=== PATIENT | female | born 1970 | race Caucasian/White ===

== ENCOUNTER 2019-01-26 18:37 | Day surgery (SDC) | payer BC ==
[2019-01-26] MEDS ORDERED: Lactated Ringers 1,000 ML IV ONE (18:45)
[2019-01-26] MEDS ORDERED: Levofloxacin/Dextrose 5%-Water 750 MG in Premix Bag 1 BAG IV ONE (18:46)
[2019-01-26] MEDS ORDERED: Bupivacaine 25%/EPINEPHrine/PF 30 ML ONE (19:16)
[2019-01-26] MEDS ORDERED: Lidocaine 2% 5 ML SDV ONE (19:18)
[2019-01-26] MEDS ORDERED: Dexamethasone 4 MG/ML 5 ML MDV ONE (19:18)
[2019-01-26] MEDS ORDERED: Ketorolac 30 MG/ML SDV ONE (19:18)
[2019-01-26] MEDS ORDERED: Propofol 200 MG/20 ML SDV ONE (19:18)
[2019-01-26] MEDS ORDERED: Ondansetron 4 MG/2 ML SDV ONE (19:18)
[2019-01-26] MEDS ORDERED: fentaNYL 250 MCG/5 ML SDV ONE (19:19)
[2019-01-26] MEDS ORDERED: Midazolam 1 MG/ML 2 ML SDV ONE ×2 (19:19→21:29)
[2019-01-26] MEDS ORDERED: fentaNYL 100 MCG/2 ML SDV IVPUSH PRN (20:49)
[2019-01-26] MEDS ORDERED: Naloxone 0.4 MG/ML Syringe IVPUSH PRN (20:49)
[2019-01-26] MEDS ORDERED: Atropine 0.1 MG/ML 10 ML Syringe IVPUSH PRN ×2 (20:49)
[2019-01-26] MEDS ORDERED: EPINEPHrine 1:10,000 1 MG/10 ML Syringe IVPUSH PRN (20:49)
[2019-01-26] MEDS ORDERED: 50% Dextrose in Water 50 ML Syringe IVPUSH PRN (20:49)
[2019-01-26] MEDS ORDERED: Albuterol 0.083% 2.5 MG/3 ML Neb Soln NEB PRN (20:49)
--- NOTE | 2019-01-26 20:49 | PCM.PREANE ---
Preanesthetic Assessment - Anesthesia/Transfusion/Family Hx Anesthesia History: Prior Anesthesia Without Reaction Transfusion History: Prior Transfusion Without Reaction - Review of Systems General: No Symptoms Pulmonary: No Symptoms Cardiovascular: No Symptoms Gastrointestinal: Abdominal Pain Neurological: No Symptoms Other: Reports: None - Physical Assessment NPO Status Date: 01/26/19 NPO Status Time: 09:00 Pulse: 85 O2 Sat by Pulse Oximetry: 98 Respiratory Rate: 17 Blood Pressure: 123/67 Height: 1.63 m Weight: 88.592 kg ASA Class: 2E Mental Status: Alert & Oriented x3 Dentition: Reports: Normal Dentition ROM/Head Extension: Full Lungs: Clear to Auscultation, Normal Respiratory Effort Cardiovascular: Regular Rhythm - Lab Values: Laboratory Last Values Urine HCG, Qual NEGATIVE (NEGATIVE) 01/26/19 18:50 - Allergies Allergies/Adverse Reactions: Allergies Allergy/AdvReac Type Severity Reaction Status Date / Time Penicillins Allergy Nausea and Verified 01/26/19 19:27 Vomiting - Acknowledgements Anesthesia Type Planned: General Anesthesia Pt an Appropriate Candidate for the Planned Anesthesia: Yes Alternatives and Risks of Anesthesia Discussed w Pt/Guardian: Yes Pt/Guardian Understands and Agrees with Anesthesia Plan: Yes PreAnesthesia Questionnaire HEENT History: Reports: None Cardiovascular History: Reports: Hypertension Respiratory History: Reports: None Gastrointestinal History: Reports: GERD Other OB/BYN History: Musculoskeletal History: Reports: Arthritis Psychiatric History: Reports: Anxiety, Depression Hematologic History: Reports: Anemia - Infectious Disease History Infectious Disease History: Reports: Chicken Pox - Past Surgical History HEENT Surgical History: Reports: Other (See Below) Other HEENT Surgeries/Procedures: repair od deviated septum Cardiovascular Surgical History: Reports: None GI Surgical History: Reports: None Female Surgical History: Reports: Tubal Ligation - SUBSTANCE USE Smoking Status *Q: Former Smoker Second Hand Smoke Exposure: Yes Recreational Drug Use History: No - CURRENT (IN HOUSE) MEDS Current Meds: Current Medications Lactated Ringer's (Ringers, Lactated) 1,000 mls @ 150 mls/hr IV ASDIRECTED ONE Stop: 01/27/19 01:24 Last Admin: 01/26/19 18:45 Dose: 150 mls/hr Discontinued Medications Dexamethasone (Dexamethasone) Confirm Administered Dose 20 mg .ROUTE .STK-MED ONE Stop: 01/26/19 19:19 Fentanyl (Sublimaze) Confirm Administered Dose 250 mcg .ROUTE .STK-MED ONE Stop: 01/26/19 19:20 Levofloxacin/Dextrose 750 mg/ (Premix) 150 mls @ 100 mls/hr IV ONETIME ONE Stop: 01/26/19 20:15 Last Admin: 01/26/19 19:30 Dose: Not Given Bupivacaine HCl/Epinephrine Bitart (Sensorc Mpf 0.25%-Epi [id number]) Confirm Administered Dose 30 mls @ as directed .ROUTE .STK-MED ONE Stop: 01/26/19 19:17 Ketorolac Tromethamine (Toradol) Confirm Administered Dose 30 mg .ROUTE .STK- MED ONE Stop: 01/26/19 19:19 Lidocaine (Xylocaine-Mpf 2%) Confirm Administered Dose 5 ml .ROUTE .STK-MED ONE Stop: 01/26/19 19:19 Midazolam HCl (Versed 1 Mg/Ml) Confirm Administered Dose 2 mg .ROUTE .STK-MED ONE Stop: 01/26/19 19:20 Ondansetron HCl (Zofran) Confirm Administered Dose 8 mg .ROUTE .STK-MED ONE Stop: 01/26/19 19:19 Propofol (Diprivan 20 Ml) Confirm Administered Dose 200 mg .ROUTE .STK-MED ONE Stop: 01/26/19 19:19
--- NOTE | 2019-01-26 21:24 | PCM.OPNOTE ---
- General Post-Op/Procedure Note Date of Surgery/Procedure: 01/26/19 Operative Procedure(s): lap appendectomy Findings: acute appendicitis, appendicitis suppurativa, gross perf not observed; [id number] Pre Op Diagnosis: acute appendicitis Post-Op Diagnosis: Same Anesthesia Technique: General ET Tube Primary Surgeon: Jonathan Atkinson Pathology: sent Surgical Drain/Tube Type: [place] Flat Drain Drain/Tube Comments:: purulent peritoneal fluid Complications: None Condition: Good
[2019-01-26] MEDS ORDERED: Morphine 10 MG/ML Syringe IVPUSH PRN (21:25)
--- NOTE | 2019-01-26 22:08 | PCM.POSTAN ---
POST ANESTHESIA ASSESSMENT - VITAL SIGNS Pulse Rate: 78 SaO2: 98 Resp Rate: 14 - RESPIRATORY Respiratory Status: Respiratory Rate WNL, Airway Patent, O2 Saturation Stable, Supplemental Oxygen - CARDIOVASCULAR CV Status: Pulse Rate WNL, Blood Pressure Stable - GASTROINTESTINAL GI Status: No Symptoms - POST OP HYDRATION Hydration Status: Adequate & Stable
[2019-01-26] MEDS: Lactated Ringers 1,000 ML IV SCH (22:35)
[2019-01-26] MEDS: Ondansetron 4 MG/2 ML SDV IVPUSH SCH (23:11)
--- NOTE | 2019-01-27 01:43 | OR ---
SURGEON: Jonathan Atkinson MD DATE OF PROCEDURE: 01/26/2019 PREOPERATIVE DIAGNOSIS: Acute appendicitis. POSTOPERATIVE DIAGNOSIS: Acute appendicitis suppurativa, and gross perforation is not observed. PROCEDURE PERFORMED: Laparoscopic appendectomy with drain placement. COMPLICATION: None. FINDING: The appendix is completely full of purulent exudate from the tip all the way to the base of the appendix, and also there are several stones. Gross perforation is not observed. DESCRIPTION OF PROCEDURE: The patient was taken to the operating room and placed in the supine position. Following induction of general endotracheal anesthesia, the patient's abdomen was prepped and draped in the sterile fashion. A time-out has been called. The patient was identified. The procedure was identified. The antibiotics were identified. The procedure then proceeded. The abdomen was prepped and draped in a standard fashion. After assessment of appropriate landmarks, a 12 millimeter trocar was inserted supraumbilically using Optiview and pneumoperitoneum was then achieved. This was followed with placement of 5 millimeter port in the right upper quadrant and another 5 millimeter port infraumbilically. The camera was inserted supraumbilical site and two laparoscopic Artemio retractors were then inserted through the other two sites. Following the cecum, the appendix was located. The appendix was then lifted up, and using a GI stapler the appendix was amputated at the base. And using the GI stapler, the mesoappendix was then amputated. The appendix was retrieved by an endoscopic bag and sent for pathologist. After the appendix was removed and irrigation was performed, JOHNATHAN drain flat 10 was inserted and anchored to the skin with 0 stitch. This was then followed by re-insertion of the camera to examine the staple line, and hemostasis. The trocars were then removed. The umbilical site was closed with 2-0 Vicryl deep stitch skin approximated w skin kulwant; so did the other 2 sites; The patient was then awakened, extubated, and transferred to the recovery room in hemodynamically stable condition. Prior to closing, sponge count and instrument count was correct. Dr. Atkinson was present throughout the whole procedure. As always, thank you for the kind referral. Intraoperative findings dictated above. Thank you for the kind referral. RO / YAN /[id number] PERLA
[2019-01-27] MEDS: Acetaminophen/oxyCODONE 325-5 MG Tab PO PRN ×2 (03:09→08:15)
[2019-01-27] MEDS: Ondansetron 4 MG/2 ML SDV IVPUSH SCH (05:04)
[2019-01-27] MEDS: Lactated Ringers 1,000 ML IV SCH (07:48)
--- NOTE | 2019-01-27 10:59 | PCM.SN ---
- Free Text/Narrative Note: Verbal order to RN Luna to give Versed PRN 1-2MG IVP Prn anxiety, may repat PRN Q 30 Min up to 4 mg total While in PACU
--- NOTE | 2019-01-27 13:15 | HP ---
DATE OF : 1970 PRIMARY CARE PHYSICIAN: None PCP CHIEF COMPLAINT: Acute appendicitis. HISTORY OF PRESENT ILLNESS: The patient is a 48-year-old obese lady and a BMI of 34, transferred from [facility] for CAT scan evidence of acute appendicitis. The patient complained she had a gradual onset of periumbilical pain yesterday at around 4 a.m., which was 26 hours from now and subsequently migrated to the right lower quadrant and sought help to the emergency room at [facility] today and got a CAT scan. It showed dilated appendix of 14 mm with periappendiceal fat and appendicolith. White count 24. The patient transferred from [facility] to our place for further management. The patient remarked her pain as about 8 on the pain scale and denied fever, chills, diarrhea, and last meal was this morning about 12 hours from now. ALLERGIES: Please refer to nursing for details. The patient is allergic to PCN. MEDICATION: Please refer to nursing for details. REVIEW OF SYSTEMS: Same as history of present illness. FAMILY HISTORY: Noncontributory. PAST MEDICAL HISTORY: Significant for no diabetes, IL, CVA, or hypertension. PAST SURGICAL HISTORY: Normal vaginal delivery x2 and left knee surgery and tubal ligation. PHYSICAL EXAMINATION: GENERAL: A very pleasant lady, even smiled to the doctor, in no acute distress. HEENT: Normocephalic, atraumatic. Sclerae anicteric. LUNGS: Clear to auscultation. HEART: Regular rate and rhythm. ABDOMEN: Soft, nondistended. No pulsating tender midline abdominal structure and obese. Exquisite tenderness on the McBurney point and positive Rovsing sign. LABORATORY DATA: White count 24. CAT scan: Dilated appendix with periappendiceal fat and appendicolith. ASSESSMENT AND PLAN: The patient has acute appendicitis. Will benefit from primary appendectomy, and we will proceed with laparoscopic versus open. Risks and benefits discussed with the patient including bleeding, infection, and damage to nearby organs and possible perforation, will require placement of a drain. The patient concurred to proceed as planned. We will put the patient to IV fluid and IV Levaquin and get a consent to proceed with surgery. As always, thank you for your kind referral. RO / YAN /[id number]
[2019-01-27] MEDS ORDERED: Levofloxacin/Dextrose 5%-Water 750 MG in Premix Bag 1 BAG IV SCH (21:00)
== END 2019-01-27 11:40 | disposition home or self-care (01) ==
LOC: MW.SDS 18:37 → MW.MS 18:40 → MW.SDS 01-27 11:40
PROVIDERS: ATTEND Surgery
DX: K35.80 Unspecified acute appendicitis (principal); I10 Essential (primary) hypertension; Z88.0 Allergy status to penicillin; Z87.891 Personal history of nicotine dependence
CPT/HCPCS: 00840; 81025; A9270-GY; C1776; J1100; J1885; J2001; J2250; J2405; J2704; J3010; J7120